=== PATIENT | female | born 1995 | race Hispanic/Latino ===

== ENCOUNTER 2020-09-16 08:10 | Emergency (ER) | payer OTHER, SELFPAY ==
[2020-09-16] VITALS (14 sets, daily range): BP systolic 102–126; BP diastolic 57–78; PULSE 68–88; RESP 16; TEMP 36.5–36.9; O2SAT 97–100; BMI 20.5
--- NOTE | 2020-09-16 08:36 | DI.US.S_ITS ---
PROCEDURE: US ABDOMEN LIMITED INDICATIONS: APPENDICITIS TECHNIQUE: Real-time focused scanning was performed of the abdomen, with image documentation. COMPARISON: None. FINDINGS: Focused sonographic evaluation of the right lower quadrant reveals no fluid collection in the region. The appendix is not discretely visualized. No free fluid or lymphadenopathy demonstrated. IMPRESSION: Appendix not visualized. No secondary signs of appendicitis. CT would be recommended if there is continued clinical concern. Dictated by: Rom Edwards M.D. on 09/16/2020 at 8:38 Approved by: Rom Edwards M.D. on 09/16/2020 at 8:39
[2020-09-16 08:46] LABS: Add Manual Diff / Slide Review NO; Basophils Absolute Auto 0 /uL (0-100); Basophils Percent Auto 0.3 % (0-2); Eosinophils Absolute Auto 0 /uL (0-450); Eosinophils Percent Auto 0.6 % (2-4); Hematocrit 42.9 % (36-46); Hemoglobin 14.5 g/dL (12.0-16.0); Lymphocytes Absolute Auto 1800 /uL (1100-4500); Lymphocytes Percent Auto 23.4 % (25-40); Mean Corpuscular HGB Conc 33.7 % (30-36); Mean Corpuscular Hemoglobin 30.8 PG (26-34); Mean Corpuscular Volume 91.2 fL (80-100); Monocytes Absolute Auto 600 /uL (0-900); Monocytes Percent Auto 7.9 % (3-14); Neutrophils Absolute Auto 5200 /uL (1500-7000); Neutrophils Percent Auto 67.8 % (50-75); Platelet Count 271 X10^3/uL (150-400); Red Blood Cell Count 4.71 X10^6/uL (4.0-5.2); Red Cell Distribution Width 12.2 % (11.6-14.8); White Blood Cell Count 7.7 X10^3/uL (4.5-11.0)
--- NOTE | 2020-09-16 08:52 | ED.ABDPAIN ---
HPI - Abdominal Pain General Chief Complaint: Abdominal Pain Stated Complaint: stomach pain Time Seen by Provider: 09/16/20 08:19 Source: patient Mode of arrival: Wheelchair Limitations: no limitations History of Present Illness HPI narrative: 25-year-old woman presents with increasing abdominal pain starting last night. She attributed to the beats that she ate last night shortly there after she started having severe abdominal cramping that was periumbilical. Continue to hurt over the course of the evening and she drank some salt water which induced emesis x2 but did not influence her pain. She had a small bowel movement with a bit of flatus this morning which actually exacerbated her pain. The pain woke her up again at 3:00 a.m. this morning and is now localizing to the right lower quadrant is becoming increasingly worse and was particularly bad ?as we were driving over bumps in the car on the way end?. She denies fevers, cough, chill, diarrhea, chest pain, dyspnea, lower extremity edema. She does note that she has had a mild headache for the last 24 hours. 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 A year ago she had a left oophorectomy. She uses hormone patches for control and her LMP was 5 days ago. Last food was bread at approximately 12:30 p.m. in the middle of the night. Review of Systems Review of Systems Narrative: Remainder of review of systems including constitutional, ENT, cardiovascular, respiratory, GI, , musculoskeletal, skin, neurologic and psychiatric systems reviewed and are unremarkable except as noted in HPI. Patient History Medical History Necrotizing enterocolitis Surgical History History of left oophorectomy Social History Smoking Status: Never smoker Smoking Status: Never smoker alcohol intake frequency: 0-2 drinks per day Substance Use Type: does not use Exam Narrative Exam Narrative: General: Healthy appearing, in mild distress secondary to abdominal cramping. Able to give a complete and coherent history. Well-nourished well-developed HEENT: Moist mucous membranes, normal sclera with reactive pupils, Neck: No JVD, supple Respiratory: Lungs are clear to auscultation, no wheezing no rales no rhonchi. Full and symmetrical air movement Cardiac: Regular rate and rhythm no murmurs no bruits Abdomen: Soft, mild diffuse tenderness with significant tenderness an early peritoneal signs developing in the right lower quadrant. No significant flank pain. Skin: Warm and dry, no rashes Neurologic: Grossly neurologically intact with no obvious asymmetries or abnormalities Extremities: No trauma, well perfused Psych: Cooperative, appropriate insight and affect Initial Vital Signs Initial Vital Signs: Vital Signs Pulse Rate 88 09/16/20 08:16 Blood Pressure 125/76 09/16/20 08:16 Pulse Oximetry 99 09/16/20 08:16 Course Orders Ordered: ED Orders 09/16/20 08:24 Complete Blood Count AUTO DIFF Stat Comprehensive Metabolic Panel Stat Lipase Stat 09/16/20 08:36 US abdomen limited Stat 09/16/20 09:29 Urine Microscopic Stat 09/16/20 10:05 CT abdomen pelvis w con Stat Hydromorphone HCl (Hydromorphone 0.5 Mg Inj) 0.5 mg IV Q15MIN PRN PRN Reason: Pain, Discontinued Medications Sodium Chloride (Normal Saline 0.9%) 1,000 mls @ 1,000 mls/hr IV BOLUS ONE Stop: 09/16/20 09:35 Last Admin: 09/16/20 09:29 Dose: 1,000 mls/hr Documented by: SUSY Ondansetron HCl (Ondansetron 4 Mg/2 Ml Inj) 4 mg IV NOW ONE Stop: 09/16/20 08:37 Vital Signs Vital signs: Vital Signs - 8 hr 09/16/20 08:16 09/16/20 08:28 09/16/20 08:30 Temperature 97.7 F Pulse Rate 88 68 73 Respiratory Rate 16 Blood Pressure 125/76 125/76 118/59 L Pulse Oximetry 99 99 99 09/16/20 09:00 09/16/20 09:30 09/16/20 10:00 Temperature Pulse Rate 69 80 81 Respiratory Rate Blood Pressure 114/57 L 102/68 109/73 Pulse Oximetry 98 98 98 09/16/20 10:30 09/16/20 11:02 09/16/20 11:30 Temperature Pulse Rate 80 87 80 Respiratory Rate Blood Pressure 112/71 Pulse Oximetry 98 98 99 09/16/20 11:44 09/16/20 12:00 09/16/20 12:30 Temperature Pulse Rate 87 78 76 Respiratory Rate Blood Pressure 120/74 116/71 117/72 Pulse Oximetry 99 98 97 09/16/20 13:19 Temperature Pulse Rate 84 Respiratory Rate Blood Pressure 126/78 Pulse Oximetry 100 MDM - Abdominal Pain Medical Records Attestation: I reviewed the patient's medical records. Lab Data Attestation: I reviewed the patient's lab results. Result diagrams: 09/16/20 08:24 09/16/20 08:24 Labs: Lab Results 09/16/20 09/16/20 09/16/20 Range/Units 08:24 08:24 09:29 WBC 7.7 (4.5-11.0) X10^3/uL RBC 4.71 (4.0-5.2) X10^6/uL Hgb 14.5 (12.0-16.0) g/dL Hct 42.9 (36-46) % MCV 91.2 (80-100) fL MCH 30.8 (26-34) PG MCHC 33.7 (30-36) % RDW 12.2 (11.6-14.8) % Plt Count 271 (150-400) X10^3/uL Neut % (Auto) 67.8 (50-75) % Lymph % (Auto) 23.4 L (25-40) % [place] % (Auto) 7.9 (3-14) % Eos % (Auto) 0.6 L (2-4) % Baso % (Auto) 0.3 (0-2) % Neut # (Auto) 5200 (1927-4476) /uL Lymph # (Auto) 1800 (3300-7953) /uL [place] # (Auto) 600 (0-900) /uL Eos # (Auto) 0 (0-450) /uL Baso # (Auto) 0 (0-100) /uL Sodium 137 (137-145) mmol/L Potassium 3.8 (3.4-5.1) mmol/L Chloride 105 (98-107) mmol/L Carbon Dioxide 24 (22-32) mmol/L BUN 16 (7-17) mg/dL Creatinine 0.60 (0.52-1.04) mg/dL Estimated GFR > 60.0 (>60) mL/min BUN/Creatinine Ratio 26.7 H (6-22) Glucose 114 H (70-100) mg/dL Calcium 10.3 H (8.4-10.2) mg/dL Total Bilirubin 1.1 (0.2-1.3) mg/dL AST 28 (14-36) IU/L ALT 29 (<35) IU/L Alkaline Phosphatase 63 (38-126) U/L Total Protein 7.7 (6.3-8.2) g/dL Albumin 4.6 (3.5-5.0) g/dL Globulin 3.1 (1.7-4.1) g/dL Albumin/Globulin Ratio 1.5 (1.0-2.8) Lipase 34 (23-300) U/L Urine RBC None seen (0-5/HPF) Urine WBC 5-10/hpf H (0-5/HPF) Ur Squamous Epith Cells 5-10 /hpf H (0-5/HPF) Urine Bacteria None seen (None) Urine Mucus 1+ H (Negative) Ur Culture Indicated? Cult not indicated Point of care testing: Point of Care Testing Test Results Negative Urine Dip Bedside Urine Glucose Negative Bedside Urine Bilirubin - Negative Bedside Urine Ketone ++ 40 Urine Specific [place] 1.030 Bedside Urine Occult Blood + Bedside Urine pH 6.0 Bedside Urine Protein +/- 15 Bedside Urine Urobilinogen - Negative Bedside Urine Nitrite - Negative Bedside Urine Leukocytes - Negative Esterase Imaging Data CT scan - abdomen/pelvis: Radiologist's Impression: Radiology report: Fluid-filled colon with mild distention and multiple air-fluid levels. Diffuse marrow enhancement of colon. Short segmental thickening and increased enhancement of jejunal and ileal loops. CT findings most likely secondary to infectious enterocolitis or inflammatory bowel disease Appendix is not definitively identified no CT findings to suggest acute appendicitis No evidence of small-bowel obstruction Small amount of free fluid, no free air MDM Narrative Medical decision making narrative: 25-year-old woman with 24 hours of abdominal pain began epigastric now localizing to the right lower quadrant. Normal white blood cell count. Nondiagnostic ultrasound of the right lower quadrant. Will moved to CT scan based on clinical concern for acute appendicitis. Labs are reassuring. She had a moderate size diarrheal stool and is feeling much better in the department. Reviewed findings of CT scan. If all of her symptoms are entirely resolved then we will assume that this is an infectious colitis. If she continues to have intermittent pain, diarrhea or any bloody diarrhea she will need to follow-up with gastroenterology regarding possibility of Inflammatory bowel disease. She is safe for home discharge Discharge Plan Departure Patient Disposition: Home Clinical Impression: Enterocolitis Instructions: DI for Colitis Activity Restrictions/Additional Instructions: Thank you for coming in today You likely have an enterocolitis, an infection in your gut that is causing the pain in the diarrhea. Typically, this is self limiting and will improve without any additional treatment. You are in the right age range that there is possibility that this could be an inflammatory bowel disease presentation. If that is the case, you likely will have intermittent continued abdominal pain and diarrhea and you may even notice some blood in your stool. If you are noticing these, you need to schedule an appointment with a passport support manager. [facility] has the closest gastroenterology department, you can call to arrange an appointment. If you find that you are having worsening belly pain, you are having blood in your stool, can not stop vomiting or have new or different symptoms you do need to return to the emergency department. I hope you feel better
[2020-09-16] MEDS: SODIUM CHLORIDE 0.9% 1,000 ML 1000 ML IV (09:29)
--- NOTE | 2020-09-16 09:38 | PC.NURSE ---
Pt resting in bed, denies desire for pain or emetics at this time.
[2020-09-16 10:04] LABS: Bacteria Urine None Seen; RBC Urine None Seen (0-5/HPF)
--- NOTE | 2020-09-16 10:05 | DI.CT.S_ITS ---
PROCEDURE: CT ABDOMEN PELVIS W CON INDICATIONS: RLQ pain, non-diagnositic US, suspect appy TECHNIQUE: After the administration of intravenous contrast, 5 mm thick sections acquired from the diaphragm to the symphysis. 5 mm coronal and sagittal reformats were acquired. For radiation dose reduction, the following was used: automated exposure control, adjustment of mA and/or kV according to patient size. COMPARISON: [facility], US, US ABDOMEN LIMITED, 09/16/2020, 8:54. FINDINGS: Image quality: Excellent. ABDOMEN: Lung bases: Lung bases are clear. Heart size is normal. Solid organs: Liver is normal in size and enhancement. Gallbladder is not well seen. Biliary system is non dilated. Pancreas enhances normally. Spleen is normal in size and enhancement. No adrenal nodules. Kidneys demonstrate normal size and enhancement, without hydronephrosis. Peritoneum and bowel: Colon loops are mildly distended and filled with fluid with multiple air-fluid levels. There is mild diffusely increased mural enhancement of colon. There are segmental thickening of small intestine involving the jejunum and distal ileum. Appendix is not definitively identified. There is a small amount of free fluid. No free air. Nodes and vessels: No retroperitoneal or mesenteric adenopathy by size criteria. Aorta and inferior vena cava are normal in size. Miscellaneous: No ventral hernias. PELVIS: Genitourinary: Bladder wall thickness is normal. Miscellaneous: No inguinal hernias or adenopathy. Uterus is normal. Ovaries are not well seen. Bones: No suspicious bony lesions. No vertebral body compression fractures. IMPRESSION: 1. Fluid filled colon with mild distention and multiple air-fluid levels. There is diffuse marrow enhancement of colon. There are short segmental thickening and increased enhancement of jejunal and ileal loops. The CT findings are most likely secondary to infectious enterocolitis or inflammatory bowel disease. 2. Appendix is not definitively identified. No right lower quadrant fat stranding. No CT findings to suggest isolated acute appendicitis. 3. No findings to suggest small bowel obstruction. 4. A small amount of free fluid. No free air. Dictated by: Oracio Sidhu M.D. on 09/16/2020 at 11:46 Approved by: Oracio Sidhu M.D. on 09/16/2020 at 12:23
[2020-09-16 10:13] LABS: Squamous Epithelial Cell Urine 5-10 /HPF (0-5/HPF); WBC Urine 5-10/HPF (0-5/HPF)
[2020-09-16 10:14] LABS: Culture Indicated Urine Cult Not Indicated; Mucus Urine 1+ (Negative)
[2020-09-16 10:16] LABS: Alanine Aminotransferase 29 IU/L (<35); Albumin 4.6 g/dL (3.5-5.0); Albumin Globulin Ratio 1.5 (1.0-2.8); Alkaline Phosphatase 63 U/L (38-126); Aspartate Aminotransferase 28 IU/L (14-36); BUN Creatinine Ratio 26.7 (6-22); Bilirubin Total 1.1 mg/dL (0.2-1.3); Blood Urea Nitrogen 16 mg/dL (7-17); Calcium 10.3 mg/dL (8.4-10.2); Carbon Dioxide 24 mmol/L (22-32); Chloride 105 mmol/L (98-107); Estimated Glomerular Filt Rate > 60.0 mL/min (>60); Globulin 3.1 g/dL (1.7-4.1); Glucose 114 mg/dL (70-100); HEMOLYSIS 19 (0-50); Lipase 34 U/L (23-300); Potassium 3.8 mmol/L (3.4-5.1); Sodium 137 mmol/L (137-145); Total Protein 7.7 g/dL (6.3-8.2)
--- NOTE | 2020-09-16 11:47 | PC.NURSE ---
Pt resting in bed with father at bedside. States she is still in pain but does not want pain medication at times time. Pt states I feel like there is a wound in my stomach. Thats the kind of pain I have. Pt informed we are awaiting ct results. Denies further needs at this time.
== END 2020-09-16 13:51 | disposition home or self-care (01) ==
PROVIDERS: Emergency Provider Emergency Medicine
DX: K52.9 Noninfective gastroenteritis and colitis, unspecified (principal); R10.31 Right lower quadrant pain
CPT/HCPCS: 36415; 74177; 76705; 80053; 81003; 81015; 81025; 83690; 85025; 96360; 96361; 99283; 99284; Q9967

== ENCOUNTER → 2021-07-12 19:03 | Outpatient (CLI) | payer OTHER, SELFPAY | PROVIDERS: Visit Provider Nurse Practitioner | DX: R30.0 Dysuria (principal) | CPT/HCPCS: 87086 ==